=== PATIENT | male | born 1940 | race Caucasian/White ===

== ENCOUNTER 2019-10-24 10:20 | Outpatient (CLI) | payer MEDICARE, BC ==
--- NOTE | 2019-10-24 11:52 | MRI ---
MRI OF THE LEFT FOOT WITH AND WITHOUT IV CONTRAST: INDICATION: History of left foot pain without history of injury. CONTRAST: 16 cc of MultiHance. TECHNIQUE: Multiplanar multisequence MR images were obtained of the left foot with and without IV contrast. FINDINGS: Motion artifact heavily limits image detail. The visualized ATFL, PTFL, calcaneofibular, deltoid and syndesmotic ligaments appear intact. The Achilles, medial flexor tendons and extensor tendons appear within normal limits. There is mild f luid distention of the peroneal tendons at the level of the lateral retinaculum. There is a small subchondral cystlike abnormality involving the calcaneus subjacent to the sinus tars i. There are subchondral cystlike abnormalities with degenerative hypertrophic changes seen at the tarsometatarsal articulation particularly involving the second through fourth digit. There is moderat e great toe MTP osteoarthritic change. Lisfranc ligament is intact. There is nonspecific edema involving the metatarsal shafts of the second through fourth digit with some mild associated enhancem ent on the postcontrast series. No visible fracture line is seen involving the metatarsals. Mild edema with enhancement is seen involving the middle and lateral cuneiform as well as portions of the cuboid. No drainable soft tissue fluid collection is evident. There is mild subcutaneous edema seen involving the dorsum of the foot as well as the distal foreleg and ankle suspicious for lymphedema. The intrinsic foot musculature appears within normal limits. Plantar fascia appears within normal limits. IMPRESSION: 1. 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 There is surrounding edema involving the cuneiforms, cuboid and the second through fourth digit metatarsals. The edema is favored to be reacti ve edema related to the degenerative changes of the midfoot but there is diffuse edema seen throughout the metatarsals of the second through fourth digit raising suspicion of some stress reacti on within the metatarsals. No visible fracture lines are present. 2. 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 3. Mild peroneal tenosynovitis. 4. Mild lymphedema of the left lower extremity. Transcribed Date/Time: 10/24/2019 12:14 PM
== END 2019-10-24 10:21 | disposition home or self-care (01) ==
LOC: SCSMRI 10:20
DX: M79.672 Pain in left foot (principal); I89.0 Lymphedema, not elsewhere classified; M65.9 Synovitis and tenosynovitis, unspecified; M19.072 Primary osteoarthritis, left ankle and foot
CPT/HCPCS: 82565